=== PATIENT | female | born 1970 | race Caucasian/White ===

== ENCOUNTER → 2017-12-10 | Outpatient (CLI) | payer BC ==
[~2017-12-10] MED LIST: CEPH500C PO; DIAMOX; LEVO50TA6 PO; POTASSIUM SUPP; THYROID MED; TRIA100C7 PO
== END ==
LOC: SLEEP 15:30
PROVIDERS: ATTEND Nurse Practitioner Family
DX: G47.33 Obstructive sleep apnea (adult) (pediatric) (principal)

== ENCOUNTER → 2018-03-24 | Outpatient (CLI) | payer BC ==
--- NOTE | 2018-03-25 12:40 | Diagnostic Imaging Report ---
Indication: Routine screening. Comparison is made with prior mammogram from 09/27/2014 and 09/19/2013. 2-D and 3-D bilateral screening mammography was performed with CAD. Both breasts are heterogeneously dense, limiting the sensitivity of mammography. The overall parenchymal pattern is stable. No mass or malignant-appearing microcalcifications are seen. The axillae are unremarkable. Impression: BI-RADS category 1. No mammographic features suspicious for malignancy are identified. ACR BI-RADS Category 1: Negative. Result letter will be mailed to the patient. Note: At least 10% of breast cancer is not imaged by mammography. Dictated by: Dictated on workstation # [id number]
== END ==
LOC: RAD 15:29
PROVIDERS: ATTEND Internal Medicine
DX: Z12.31 Encounter for screening mammogram for malignant neoplasm of breast (principal)
CPT/HCPCS: 77067

== ENCOUNTER → 2018-09-17 | Outpatient (CLI) | payer BC ==
--- NOTE | 2018-09-17 10:41 | Diagnostic Imaging Report ---
Clinical indication: Patient pain in leg. Comparison: None Procedure: Real-time right lower extremity venous Doppler duplex evaluation is performed from the inguinal region through the popliteal fossa. The calf venous structures are also evaluated. Findings: The deep venous system is well visualized and is easily compressible. There is no evidence of deep venous thrombosis, valvular incompetence, or significant collateral circulation. Impression: There is no ultrasound Doppler evidence of deep venous thrombosis in the right lower extremity. Preliminary results were given to the Cathy and Dr. Snyder' s office via the telephone on 09/09/2018 and 1025 hrs by the chief medical technologist. Dictated by: Dictated on workstation # [id number]
== END ==
LOC: RAD 09:55
PROVIDERS: ATTEND Internal Medicine
DX: M79.604 Pain in right leg (principal)

== ENCOUNTER → 2021-01-24 | Outpatient (CLI) | payer BC ==
--- NOTE | 2021-01-24 12:31 | Diagnostic Imaging Report ---
PROCEDURE: Pelvic comp/transvaginal sonogram. TECHNIQUE: Complete transabdominal and transvaginal pelvic ultrasound was performed. In addition, limited pelvic Doppler was performed. INDICATION: Enlarged uterus. FINDINGS: The uterus is anteverted measuring 10.9 x 4.4 x 6.4 cm. There are small cervical nabothian cysts present. There is an anterior uterine fibroid of approximately 3 cm in size. The endometrium is somewhat thickened at 9 mm. A right ovary cannot be identified. The left ovary contains multiple cysts with the largest 3.1 x 2.8 x 2.5 cm. A smaller cyst is approximately 1.3 cm. There is blood flow to the left ovary. No free fluid is seen. IMPRESSION: 1. Uterine fibroid. The endometrium is also somewhat thickened for a patient of this age measuring 9 mm. 2. Nonvisualized right ovary. 3. Left ovarian cysts. Dictated by: Dictated on workstation # [id number]
--- NOTE | 2021-01-24 13:03 | Diagnostic Imaging Report ---
INDICATION: Routine screening. COMPARISON: 03/24/2018 and 09/27/2014. TECHNIQUE: 2D and 3D bilateral screening mammography was performed with CAD. FINDINGS: Scattered fibroglandular densities are identified bilaterally. The parenchymal pattern is stable. No new mass or malignant-appearing microcalcifications are seen. The axillae are unremarkable. IMPRESSION: No mammographic features suspicious for malignancy are identified. ACR BI-RADS Category 1: Negative. Result letter will be mailed to the patient. Note: At least 10% of breast cancer is not imaged by mammography. Dictated by: Dictated on workstation # [id number]
== END ==
LOC: RAD 11:15
PROVIDERS: ATTEND Surgery
DX: Z12.31 Encounter for screening mammogram for malignant neoplasm of breast (principal); D25.9 Leiomyoma of uterus, unspecified; N83.202 Unspecified ovarian cyst, left side
CPT/HCPCS: 76830; 76856; 77063; 77067

== ENCOUNTER 2021-05-08 15:42 | Outpatient (RCR) | payer BC | END 2021-06-21 | disposition home or self-care (01) | PROVIDERS: ATTEND Nurse Practitioner Family | DX: N39.498 Other specified urinary incontinence (principal) ==

== ENCOUNTER 2022-01-24 20:32 | Outpatient (CLI) | payer BC | END 2022-01-25 06:15 | disposition home or self-care (01) | LOC: SLEEP 20:32 | PROVIDERS: ATTEND Otolaryngology Otolaryngology/Facial Plastic Surgery | DX: G47.33 Obstructive sleep apnea (adult) (pediatric) (principal); G47.10 Hypersomnia, unspecified | CPT/HCPCS: 95810 ==

== ENCOUNTER → 2022-01-27 | Outpatient (CLI) | payer BC ==
--- NOTE | 2022-01-27 10:48 | Diagnostic Imaging Report ---
INDICATION: Routine screening. COMPARISON: Prior mammograms from 01/24/2021 and 03/24/2018. TECHNIQUE: 2D and 3D bilateral screening mammography was performed with CAD. FINDINGS: Scattered fibroglandular densities are identified bilaterally. There is a nodular density in the left breast outer aspect at mid depth, best seen on the CC tomographic image #31. This is not well-visualized on the MLO view but may be at the nipple line. No other masses are identified. There are occasional benign calcifications. No malignant appearing microcalcifications are seen. The axillae are unremarkable. IMPRESSION: Left breast density. Additional views are recommended for further evaluation. ACR BI-RADS Category 0: Incomplete. (Needs additional imaging evaluation). Result letter will be mailed to the patient. Note: At least 10% of breast cancer is not imaged by mammography. Dictated by: Dictated on workstation # [id number]
== END ==
LOC: RAD 08:45
PROVIDERS: ATTEND Internal Medicine
DX: Z12.31 Encounter for screening mammogram for malignant neoplasm of breast (principal)
CPT/HCPCS: 77063; 77067

== ENCOUNTER → 2022-02-03 | Outpatient (CLI) | payer BC ==
--- NOTE | 2022-02-03 13:59 | Diagnostic Imaging Report ---
INDICATION: Left breast density. Patient presents for additional views. COMPARISON: Correlation is made with the screening study from 01/27/2022. TECHNIQUE: Unilateral left 2D and 3D diagnostic mammography was performed. This includes spot compression CC and ML views as well as conventional 90 degree lateral views. FINDINGS: The additional views show a persistent nodular density in the outer left breast at mid depth, slightly below the nipple line on the ML view. This is approximately 10 to 11 cm from the nipple. No other masses are seen. IMPRESSION: Persistent density in the lower outer left breast at mid depth. Further evaluation with ultrasound is recommended and will be performed today. ACR BI-RADS Category 0: Incomplete. (Needs additional imaging evaluation). Result letter will be mailed to the patient. Note: At least 10% of breast cancer is not imaged by mammography. Dictated by: Dictated on workstation # [id number]
--- NOTE | 2022-02-03 14:17 | Diagnostic Imaging Report ---
INDICATION: Abnormal mammogram and left breast density. COMPARISON: Correlation is made with the diagnostic mammogram from earlier this same day as well as the screening mammogram from 01/27/2022. FINDINGS: Sonographic interrogation of the outer left breast was performed. There appears to be a small cluster of cysts versus ductal ectasia at the 4 o'clock location of the left breast 7 cm from the nipple. In aggregate, this area measures 8 mm x 5 mm x 8 mm. This may account for the mammographic density. No other sonographic abnormality is seen. IMPRESSION: Questionable cyst cluster versus ductal ectasia at the 4 o'clock location of the left breast 7 cm from the nipple. This may account for the mammographic density. Even so, a followup left mammogram in 6 months is recommended to show continued stability. Dictated by: Dictated on workstation # [id number]
== END ==
LOC: RAD 13:15
PROVIDERS: ATTEND Internal Medicine
DX: R92.2 Inconclusive mammogram (principal)
CPT/HCPCS: 76642; 77065; G0279

== ENCOUNTER → 2022-08-01 | Outpatient (CLI) | payer BC ==
--- NOTE | 2022-08-01 17:36 | Diagnostic Imaging Report ---
INDICATION: Six-month follow-up left breast density. COMPARISON: Correlation is made with prior mammogram from 02/03/2022. EXAMINATION: Unilateral left 2D and 3D diagnostic mammography was performed with CAD. The current study was also evaluated with a Computer Aided Detection (CAD) system. FINDINGS: Scattered fibroglandular densities in left breast are noted. Density in the outer left breast appears stable. No new mass is detected. No malignant-appearing microcalcifications are identified. IMPRESSION: Stable nodular density in the outer left breast mid to posterior depth. Even so, sonographic evaluation of this area is again recommended and will be performed today. Dictated by: Dictated on workstation # [id number]
--- NOTE | 2022-08-01 17:47 | Diagnostic Imaging Report ---
INDICATION: Six-month follow-up left breast density. COMPARISON: Correlation is made with diagnostic mammogram from earlier the same day and left breast ultrasound from 02/03/2022. EXAMINATION: Sonographic interrogation of the outer left breast was performed. FINDINGS: Previously noted questionable cluster at the 4 o'clock location of left breast, 7 cm from the nipple, is not well-seen today. No suspicious sonographic finding is identified today. No solid or cystic mass is detected. IMPRESSION: No sonographic abnormality is identified on today's study. The density noted mammographically appears stable on diagnostic mammogram. Follow-up left mammogram in six months is recommended to show continued stability. ACR BI-RADS Category 3: Probably benign findings. Dictated by: Dictated on workstation # [id number]
== END ==
LOC: RAD 13:58
PROVIDERS: ATTEND Nurse Practitioner Family
DX: R92.2 Inconclusive mammogram (principal)
CPT/HCPCS: 76642; 77065; G0279

== ENCOUNTER → 2022-11-05 | Outpatient (CLI) | payer BC ==
[~2022-11-05] VITALS: Ht 162 cm; Wt 109.0 kg
[~2022-11-05] MED LIST changes: +IRON DEXTRAN 1,000 MG/NS 250 ML IVPB IV ONE; +IRON DEXTRAN 25 MG/NS 6.25 ML TOTAL VOLUME IV ONE
[2022-11-05 14:11] VITALS: BP 116/93
== END ==
LOC: SDC 13:02
PROVIDERS: ATTEND Internal Medicine
DX: D50.9 Iron deficiency anemia, unspecified (principal)
CPT/HCPCS: 96365

== ENCOUNTER → 2023-02-09 | Outpatient (CLI) | payer BC ==
[~2023-02-09] MED LIST changes: -IRON DEXTRAN 1,000 MG/NS 250 ML IVPB IV ONE; -IRON DEXTRAN 25 MG/NS 6.25 ML TOTAL VOLUME IV ONE
--- NOTE | 2023-02-09 11:38 | Diagnostic Imaging Report ---
Indication: Routine screening Comparison is made with prior mammogram from 01/27/2022, 01/24/2021 as well as 08/01/2022. 2-D and 3-D bilateral screening mammography was performed with CAD. The current study was also evaluated with a Computer Aided Detection (CAD) system. Both breasts are heterogeneously dense, limiting the sensitivity of mammography. Benign-appearing nodular densities in both breasts are stable. There are benign calcifications. No spiculated mass or malignant-appearing microcalcifications are seen. Axillae are unremarkable. IMPRESSION: BI-RADS Category 2 No mammographic features suspicious for malignancy are identified. ACR BI-RADS Category 2: Benign findings. Result letter will be mailed to the patient. Note: At least 10% of breast cancer is not imaged by mammography. Dictated by: Dictated on workstation # [id number]
== END ==
LOC: RAD 08:00
PROVIDERS: ATTEND Internal Medicine
DX: Z12.31 Encounter for screening mammogram for malignant neoplasm of breast (principal)
CPT/HCPCS: 77063; 77067